=== PATIENT | female | born 1960 | race African-American/Black ===

== ENCOUNTER 2017-12-27 16:19 | Emergency (ER) | payer MEDICARE ==
[~2017-12-27] VITALS: Ht 172.7 cm; Wt 78.0 kg
[2017-12-27] MEDS ORDERED: IBUPROFEN400 MG PO (17:58)
[2017-12-27 18:12] VITALS: BP 132/88
[2017-12-27] MEDS ORDERED: NORVASC5 MG PO (18:23)
== END 2017-12-27 18:14 | disposition home or self-care (01) ==
LOC: FSED 16:19
DX: M79.662 Pain in left lower leg (principal); I10 Essential (primary) hypertension; F17.210 Nicotine dependence, cigarettes, uncomplicated
CPT/HCPCS: 80053; 80307; 85025; 93971; 99283